=== PATIENT | male | born 1990 | race Hispanic/Latino ===

== ENCOUNTER 2016-08-29 11:05 | Emergency (ER) | payer BC ==
[2016-08-29 11:08] VITALS: BP 137/64; PULSE 55; RESP 16; TEMP 97.8; O2SAT 100
[2016-08-29 11:09] VITALS: BMI 23.7
--- NOTE | 2016-08-29 11:36 | ED PDOC ---
Lower Extremity Pain/Injury Time Seen by Provider: 08/29/16 11:25 Chief Complaint (Nursing): Lower Extremity Problem/Injury Chief Complaint (Provider): Leg laceration History Per: Patient History/Exam Limitations: no limitations Onset/Duration Of Symptoms: Days (3) Current Symptoms Are (Timing): Still Present Additional Complaint(s): Pt. was playing soccer Wed and another person's cleat cut back of the ankle on the right. He has put on antibiotic ointment, cleaning with hydrogen peroxide, and cleaning it. Saw podiatry Dr. Yaniv larose who sent pt. to the ED. Pt. has pain to the area. No numbness, tingles, weakness, foot pain. No calf pain. Past Medical History Reviewed: Nursing Documentation, Vital Signs Vital Signs: Last Vital Signs Temp 97.8 F 08/29/16 11:08 Pulse 55 L 08/29/16 11:08 Resp 16 08/29/16 11:08 BP 137/64 08/29/16 11:08 Pulse Ox 100 08/29/16 11:08 - Medical History PMH: No Chronic Diseases - Surgical History Surgical History: No Surg Hx - Family History Family History: States: Unknown Family Hx - Immunization History Hx Tetanus Toxoid Vaccination: No - Home Medications Home Medications: Ambulatory Orders Medication Instructions Recorded Cephalexin [cephalexin] 500 mg PO QID 7 Days 08/29/16 - Allergies Allergies/Adverse Reactions: Allergies Allergy/AdvReac Type Severity Reaction Status Date / Time No Known Allergies Allergy Verified 08/29/16 11:20 Review of Systems Constitutional: Negative for: Weakness Cardiovascular: Negative for: Chest Pain Respiratory: Negative for: Shortness of Breath Musculoskeletal: Positive for: Other (ankle). Negative for: Neck Pain, Shoulder Pain, Arm Pain Neurological: Negative for: Weakness, Numbness, Confusion Physical Exam - Reviewed Nursing Documentation Reviewed: Yes Vital Signs Reviewed: Yes - Physical Exam Appears: Positive for: Well, Non-toxic, No Acute Distress Neck: Positive for: Normal, Painless ROM Cardiovascular/Chest: Positive for: Regular Rate, Rhythm Respiratory: Positive for: CNT, Normal Breath Sounds Pulses-Dorsalis Pedis (R): 2+ Back: Positive for: Normal Inspection Extremity: Positive for: Normal ROM, Tenderness (R posterior ankle mild tender; no swelling; laceration subcutaneous 3cm diagonal; no dc. or erythema.). Negative for: Pedal Edema, Calf Tenderness Neurologic/Psych: Positive for: Alert, Oriented - ECG O2 Sat by Pulse Oximetry: 100 - Progress ED Course And Treament: 1232: Stable. AAOx3. Pain free. Tolerated PO. Podiatry saw pt. They sutured wound after discussion with their attending Dr. Purvis. Pt. to fu with Dr. Purvis in 2 weeks. Podiatry wants keflex on dc. Disposition - Clinical Impression Clinical Impression: Laceration - Patient ED Disposition Is Patient to be Admitted: No Counseled Patient/Family Regarding: Diagnosis, Need For Followup, Rx Given - Disposition Referrals: Milana Purvis DPM [Staff Provider] - 09/01/16 Disposition: Routine/Home Disposition Time: 12:33 Condition: STABLE Additional Instructions: Return if not better in [address] Purvis in 2 weeks for suture removal. Prescriptions: Cephalexin [cephalexin] 500 mg PO QID 7 Days Instructions: Laceration (ED) Forms: [facility] (Romansh)
[2016-08-29] MEDS ORDERED: TDAP Vaccine 0.5 mL Syr IM ONE (11:42)
[2016-08-29] MEDS ORDERED: Lidocaine 1% Inj (20ml) ONE (11:47)
--- NOTE | 2016-08-29 13:38 | CP.PCM.CON ---
History of Present Illness - History of Present Illness History of Present Illness: 26 y/o male with no known pmhx seen at bedside in ED for a laceration on posterior right heel that happened 2 days ago from playing soccer. Pt states that he was playing soccer when the injury occured and someone kicked him from behind with their cleats. Pt states that he went to Dr. Purvis's office before coming to the ED and she sent him for a full workup. Pt states that since then, he has been putting neosporine and a bandage on the cut. Pt states that he has been cleaning it with soap and water. Pt denies of having F/N/V/C/SOB today. Pt does not remember having his last tetanus shot. Review of Systems - Constitutional Constitutional: As Per HPI Past Patient History - Past Social History Smoking Status: Never Smoked - PSYCHIATRIC Hx Substance Use: No - SURGICAL HISTORY Hx Herniorrhaphy: Yes Meds Home Medications: Home Medication List Medication Instructions Recorded Confirmed Type Cephalexin [cephalexin] 500 mg PO QID 7 Days 08/29/16 Rx Allergies/Adverse Reactions: Allergies Allergy/AdvReac Type Severity Reaction Status Date / Time No Known Allergies Allergy Verified 08/29/16 11:20 Physical Exam - Constitutional Appears: Well, Non-toxic, No Acute Distress - Extremities Exam Additional comments: Right foot focused: VASC: DP/PT pulses are 2/4, VARITYPE OPERATOR: < 3 sec to all digits, TG: warm to cool, no pitting or non-pitting edema noted, no varicosities noted DERM: superficial laceration on the posterior aspect of R heel noted, the edges are clean with surrounding mild erythema, no active drainage noted from the site , no purulence, no probe to bone, no tunneling or undermining, no malodor, no clinical suspicion of active infection noted NEURO: Protective sensation grossly intact ORTHO: Mild tenderness on palpation of the lacerated site, foot able to plantarflex on squeezing the calf - Neurological Exam Neurological exam: Alert, Oriented x3 Results - Vital Signs Recent Vital Signs: Last Vital Signs Temp 97.8 F 08/29/16 11:08 Pulse 55 L 08/29/16 11:08 Resp 16 08/29/16 11:08 BP 137/64 08/29/16 11:08 Pulse Ox 100 08/29/16 12:35 Assessment & Plan - Assessment and Plan (Free Text) Assessment: 26 y/o male seen at bedside in ED for right posterior heel injury/ laceration secondary to trauma Plan: Pt evaluated and chart reviewed Pt discussed with attending Dr. Purvis Tetanus prophylaxis given Rx: Keflex 500mg BID for 10 days 10cc of Lidocaine injected prior to suturing in a local block fashion around the right heel Laceration site cleaned using copious amounts of sterile betadine, saline mixture posterior right heel site closed with 4-0 nylon Pt tolerated the procedure well Laceration site dressed with sterile xeroform, gauze, kerlix, and MAXINE applied surgical shoe, instructed patient to partial weight bear with crutches patient instructed to keep dressing clean,dry,intact until follow up visit instructed to take over the counter ibuprofen prn for pain Pt demonstrated verbal understanding Pt educated to follow up with Dr. Purvis in 2 weeks ED precautions noted
== END 2016-08-29 12:51 | disposition home or self-care (01) ==
LOC: H.ER 11:05
DX: S91.011A Laceration without foreign body, right ankle, initial encounter (principal); W21.31XA Struck by shoe cleats, initial encounter; Y92.322 Soccer field as the place of occurrence of the external cause